=== PATIENT | male | born 1960 | race African-American/Black ===

== ENCOUNTER 2024-03-11 19:25 | Emergency (ER) | payer BC, MEDICARE ==
[~2024-03-11] VITALS: Ht 182.9 cm; Wt 100.0 kg
[2024-03-11 19:26] VITALS: O2SAT 100
[2024-03-11] MEDS: ACETAMINOPHEN 325MG TABLET PO ONE (21:20)
[2024-03-11 21:24] LABS: BASOPHILS % 0.3 % (0.0-2.0); EOSINOPHILS % 0.1 % (0.0-5.0); HEMATOCRIT. 41.7 % (42.0-52.0); MEAN CORPUSCULAR HEMOGLOBIN 29.7 pg (28.0-32.0); MEAN CORPUSCULAR HGB CONC 33.6 g/dL (31.0-37.0); MEAN CORPUSCULAR VOLUME 88.3 fL (80.0-94.0); MEAN PLATELET VOLUME 9.2 fl (7.4-10.4); MONOCYTES % 7.5 % (2.0-8.0); NEUTROPHILS % 81.1 % (40.0-76.0); PLATELET 189 x1000/uL (130-400); RED BLOOD CELL COUNT 4.72 mill/uL (4.7-6.1); RED CELL DISTRIBUTION WIDTH 16.5 % (11.6-14.6); WHITE BLOOD COUNT 9.5 x1000/uL (4.5-11.0)
[2024-03-11 21:29] LABS: CHLORIDE 108 mEq/L (98-107); POTASSIUM 3.8 mEq/L (3.5-5.1); SODIUM 139 mEq/L (136-145)
[2024-03-11 21:30] LABS: CALCIUM 10.7 mg/dL (8.7-10.4); CARBON DIOXIDE 22 mEq/L (21-32)
[2024-03-11 21:35] LABS: CREATININE 1.2 mg/dL (0.6-1.3); GLUCOSE 123 mg/dL (70-105); UREA NITROGEN BLOOD 14 mg/dL (9-23)
[2024-03-11 21:37] LABS: TROPONIN I HIGH SENSITIVITY 36 ng/L (3.0-53)
[2024-03-11] MEDS: DILTIAZEM HCL 5MG/ML 5ML VIAL IV ONE (21:40)
[2024-03-11] MEDS: MORPHINE SULFATE 4 MG/ML INJ (FOR IV/IM USE) IV ONE (22:15)
[2024-03-11] MEDS: ONDANSETRON HCL 4MG/2ML INJ IV ONE (22:15)
[2024-03-11] MEDS: NITROGLYCERIN 0.4MG TABLET SL SL PRN (22:55)
[2024-03-11] MEDS: METOCLOPRAMIDE HCL 10MG/2ML VIAL IV ONE (22:55)
[2024-03-11] MEDS: ASPIRIN 81MG TABLET PO ONE (22:56)
[2024-03-11] MEDS ORDERED: ACETAMINOPHEN 325MG TABLET PO PRN ×2 (23:15)
[2024-03-11] MEDS ORDERED: NITROGLYCERIN 0.4MG TABLET SL SL PRN (23:15)
[2024-03-11] MEDS ORDERED: GUAIFENESIN 200MG/10ML SUGAR FREE UDC PO PRN (23:15)
[2024-03-11] MEDS ORDERED: MAGNESIUM/ALUMINUM HYDROXIDE/SIMETHICONE 30ML UDC PO PRN (23:15)
[2024-03-11] MEDS ORDERED: DOCUSATE SODIUM 100MG CAPSULE PO PRN (23:15)
[2024-03-11] MEDS ORDERED: KETOROLAC 15MG/ML VIAL IV PRN (23:15)
[2024-03-11] MEDS ORDERED: ONDANSETRON HCL 4MG/2ML INJ IV PRN (23:15)
[2024-03-11] MEDS ORDERED: ZOLPIDEM TARTRATE 5MG TABLET PO PRN (23:15)
[2024-03-11] MEDS ORDERED: IPRATROPIUM/ALBUTEROL 0.5-3(2.5)MG/3ML NEB NEB PRN (23:15)
[2024-03-11] MEDS ORDERED: CLONIDINE 0.1MG TABLET PO PRN (23:15)
[2024-03-11] MEDS: METOPROLOL TARTRATE 25MG TABLET PO SCH (23:15)
[2024-03-11] MEDS: NITROGLYCERIN OINT 1GM/INCH UDPKT TD SCH (23:32)
[2024-03-12 00:50] LABS: IRON 68 ug/dL (65-175)
[2024-03-12 00:51] LABS: TRIGLYCERIDE 68 mg/dL (0-150)
[2024-03-12 00:52] LABS: LDL CHOLESTEROL 55 mg/dL (5-100)
[2024-03-12 00:53] LABS: CHOLESTEROL 139 mg/dL (<200); HDL CHOLESTEROL 61 mg/dL (>55); TOTAL IRON BINDING CAPACITY 347 ug/dl (250-425)
[2024-03-12 00:56] LABS: T4 FREE 1.49 ng/dL (0.89-1.76); THYROID STIMULATING HORMONE 8.65 uIU/mL (0.55-4.78)
[2024-03-12 01:08] VITALS: BP 116/71; PULSE 88; RESP 13; TEMP 36.89184; O2SAT 99
[2024-03-12] MEDS ORDERED: ASPIRIN 81MG EC TABLET PO SCH (09:00)
[2024-03-12] MEDS ORDERED: FAMOTIDINE 20MG TABLET PO SCH (09:00)
[2024-03-12] MEDS ORDERED: ENOXAPARIN 40MG/0.4ML SYR SUBCUT SCH (09:00)
== END 2024-03-12 01:10 | disposition left against medical advice (07) ==
LOC: ER 19:25
DX: R42 Dizziness and giddiness (principal); R07.9 Chest pain, unspecified; Z88.5 Allergy status to narcotic agent; Z88.8 Allergy status to other drugs, medicaments and biological substances
CPT/HCPCS: 99285; 96374; 96375; 71045; 80061; 80048; 83880; 84439; 83540; 83550; 84443; 85025; 85379; 84484; 36415; 84145; 93005; J3490; J2765; J2405; J2270